=== PATIENT | male | born 1945 | race Caucasian/White ===

== ENCOUNTER 2022-02-25 10:30 | Emergency (ER) | payer OTHER ==
[~2022-02-25] VITALS: Ht 165.1 cm; Wt 59.0 kg
[~2022-02-25 10:30] MED LIST: AMIO200T PO; ASPI-1155 PO; ATEN-41 PO; ATOR40TA68 PO; CLOP75TA2 PO; EZET10TA PO; FINA5TAB3 PO; HYDR25TA4 PO; LIALDA PO; METR500T PO; elmiron PO
[2022-02-25 10:35] VITALS: BP_SYST 134
[2022-02-25] MEDS ORDERED: LIDOCAINE PATCH 5% 1 EA TP ONE (12:45)
[2022-02-25] MEDS ORDERED: HYDROcodone/ACETAMIN 5-325 MG TAB (NORCO/ VICODIN) PO ONE (12:45)
[2022-02-25] MEDS ORDERED: LIDOINT TP (13:49)
[2022-02-25] MEDS ORDERED: HYDR-3917 PO (13:49)
[2022-02-25 14:12] VITALS: BP_SYST 127
== END 2022-02-25 14:10 | disposition home or self-care (01) ==
LOC: SED 10:30
DX: S32.029A Unspecified fracture of second lumbar vertebra, initial encounter for closed fracture (principal); S32.039A Unspecified fracture of third lumbar vertebra, initial encounter for closed fracture; I12.9 Hypertensive chronic kidney disease with stage 1 through stage 4 chronic kidney disease, or unspecified chronic kidney disease; N18.30 Chronic kidney disease, stage 3 unspecified; Z88.5 Allergy status to narcotic agent; Z88.8 Allergy status to other drugs, medicaments and biological substances; Z79.899 Other long term (current) drug therapy; W11.XXXA Fall on and from ladder, initial encounter; Y93.89 Activity, other specified; Y92.89 Other specified places as the place of occurrence of the external cause; Y99.8 Other external cause status
CPT/HCPCS: 72131; 72170-TC; 76376; 99284